=== PATIENT | female | born 1990 | race Two or more races ===

== ENCOUNTER 2024-06-05 19:41 | Emergency (ER) | payer SELFPAY ==
[~2024-06-05] VITALS: Ht 160 cm; Wt 66.0 kg
[2024-06-05 19:48] VITALS: BP 154/97; PULSE 87; RESP 18; TEMP 36.9; O2SAT 100
== END 2024-06-05 20:48 | disposition left against medical advice (07) ==
LOC: ER 19:41
DX: R51.9 Headache, unspecified (principal); R07.9 Chest pain, unspecified; Z53.21 Procedure and treatment not carried out due to patient leaving prior to being seen by health care provider
CPT/HCPCS: 71045; 93005